=== PATIENT | female | born 1980 | race Two or more races ===

== ENCOUNTER 2023-10-22 22:57 | Emergency (ER) | payer OTHER ==
[~2023-10-22] VITALS: Ht 157.5 cm; Wt 68.0 kg
[2023-10-23 01:48] VITALS: BP 155/84; PULSE 97; RESP 18; TEMP 98.7; O2SAT 100
[2023-10-23] MEDS ORDERED: IBUPROFEN 400 MG TAB PO ONE (02:30)
[2023-10-23 02:43] LABS: Basophils # (auto) 0.1 10 ^3/uL (0-0.2); Basophils % (auto) 0.9 % (0.0-2.0); Eosinophils # (auto) 0.2 10 ^3/uL (0-0.8); Hematocrit 38.5 % (36.0-46.0); Hemoglobin 12.9 g/dL (12.2-16.2); Lymphocytes # (auto) 2.6 10 ^3/uL (0.4-5.4); Lymphocytes % (auto) 35.8 % (10.0-50.0); Mean Corpuscular Hemoglobin 28.8 pg (28.0-32.0); Mean Corpuscular Hgb Conc. 33.4 g/dL (32.0-36.0); Mean Corpuscular Volume 86.1 fL (80.0-100.0); Monocytes # (auto) 0.5 10 ^3/uL (0-1.3); Monocytes % (auto) 6.3 % (0.0-12.0); Nucleated Red Blood Cells % 0.2 %; Red Blood Cells 4.47 10^6/uL (4.0-5.20); Red Cell Distribution Width 13.3 % (11.8-14.3); White Blood Cell 7.4 10^3/uL (4.4-10.8)
[2023-10-23 03:29] LABS: Erythrocyte Sedimentation Rate 4 mm/hr (0-20)
== END 2023-10-23 05:12 | disposition home or self-care (01) ==
LOC: ER 22:57
DX: M25.561 Pain in right knee (principal); M79.89 Other specified soft tissue disorders
CPT/HCPCS: 36415; 73700; 81025; 85025; 85652; 86141